=== PATIENT | male | born 1975 | race Caucasian/White ===

== ENCOUNTER 2019-07-25 08:01 | Emergency (ER) | payer BC, OTHER ==
[2019-07-25] MEDS ORDERED: Sodium Chloride 0.9% 10 ML Syringe FLUSH PRN (08:21)
[2019-07-25] MEDS ORDERED: Sodium Chloride 0.9% 1,000 ML IV STA (08:21)
[2019-07-25] MEDS ORDERED: Ondansetron 4 MG/2 ML SDV IVPUSH ONE (08:21)
[2019-07-25] MEDS ORDERED: HYDROmorphone 1 MG/ML Syringe IVPUSH ONE ×3 (08:23→13:15)
--- NOTE | 2019-07-25 08:38 | EDM.PDOC ---
ED HPI GENERAL MEDICAL PROBLEM - General Chief Complaint: Abdominal Pain Stated Complaint: VOMITING AND LOWER ABD PAIN Time Seen by Provider: 07/25/19 08:19 Source of Information: Reports: Patient History Limitations: Reports: No Limitations - History of Present Illness INITIAL COMMENTS - FREE TEXT/NARRATIVE: The patient presents with left sided abdominal pain, nausea and vomiting. This started at 2am this morning. He has no fever, chills, cough, chest pain, or shortness of breath. He has no dysuria, hematuria or diarrhea. He has no flank pain. He still has his gallbladder and appendix. Onset: Sudden Duration: Hour(s): (2am it woke him up) Location: Reports: Abdomen Quality: Reports: Sharp Severity: Severe Improves with: Reports: None Worsens with: Reports: None Associated Symptoms: Reports: Nausea/Vomiting. Denies: Chest Pain, Cough, Fever /Chills, Headaches, Shortness of Breath Left Middle Abdomen Pain Score (Numeric/FACES): 10 - Related Data Allergies Allergy/AdvReac Type Severity Reaction Status Date / Time No Known Allergies Allergy Verified 07/25/19 08:11 Home Meds: Home Meds Hydrocodone/Acetaminophen [Hydrocodon-Acetaminophen 5-325] 1 - 2 each PO Q6HR PRN #20 tablet 07/25/19 [Rx] Ondansetron [Zofran ODT] 4 mg PO Q6H PRN #20 tab.dis 07/25/19 [Rx] Tamsulosin HCl [Flomax] 0.4 mg PO DAILY #7 cap.er.24h 07/25/19 [Rx] Past Medical History - Past Health History Medical/Surgical History: Denies Medical/Surgical History Social & Family History - Family History Family Medical History: Noncontributory - Tobacco Use Smoking Status *Q: Never Smoker Second Hand Smoke Exposure: No - Caffeine Use Caffeine Use: Reports: Coffee - Alcohol Use Days Per Week of Alcohol Use: 3 Number of Drinks Per Day: 1 Total Drinks Per Week: 3 - Recreational Drug Use Recreational Drug Use: No ED ROS GENERAL - Review of Systems Review Of Systems: See Below Constitutional: Reports: No Symptoms HEENT: Reports: No Symptoms Respiratory: Reports: No Symptoms Cardiovascular: Reports: No Symptoms Endocrine: Reports: No Symptoms GI/Abdominal: Reports: Abdominal Pain, Nausea, Vomiting. Denies: Diarrhea : Reports: No Symptoms Musculoskeletal: Reports: No Symptoms ED EXAM, GI/ABD - Physical Exam Exam: See Below Exam Limited By: No Limitations General Appearance: Alert, Mild Distress (He is standing and leaning over the bed) Ears: Normal External Exam Nose: Normal Inspection Head: Atraumatic, Normocephalic Neck: Normal Inspection Respiratory/Chest: No Respiratory Distress, Lungs Clear, Normal Breath Sounds Cardiovascular: Regular Rate, Rhythm, No Edema, No Murmur GI/Abdominal Exam: Soft, No Organomegaly, No Mass, Tender (Moderate tenderness to both the RLQ and LLQ) Back Exam: Normal Inspection Extremities: Normal Inspection Course - Vital Signs Last Recorded V/S: Last Vital Signs Temp 96.5 F L 07/25/19 08:08 Pulse 65 07/25/19 08:08 Resp 16 07/25/19 08:08 BP 135/80 07/25/19 08:08 Pulse Ox 100 07/25/19 08:08 - Orders/Labs/Meds Orders: Active Orders 24 hr Category Date Time Status Peripheral IV Care [RC] . DIRECTED Care 07/25/19 08:21 Active Sodium Chloride 0.9% [Saline Flush] Med 07/25/19 08:21 Active 10 ml FLUSH ASDIRECTED PRN ED Antiemetic Medication Reflex [OM.PC] Stat Oth 07/25/19 08:21 Ordered Peripheral IV Insertion Adult [OM.PC] Stat Oth 07/25/19 08:21 Ordered Medication Orders Sodium Chloride (Saline Flush) 10 ml FLUSH ASDIRECTED PRN PRN Reason: Keep Vein Open Last Admin: 07/25/19 08:31 Dose: 10 ml Labs: Laboratory Tests 07/25/19 07/25/19 07/25/19 Range/Units 08:15 08:15 10:40 WBC 7.63 (4.23-9.07) K/mm3 RBC 4.94 (4.63-6.08) M/mm3 Hgb 15.3 (13.7-17.5) gm/dl Hct 44.5 (40.1-51.0) % MCV 90.1 (79.0-92.2) fl MCH 31.0 (25.7-32.2) pg MCHC 34.4 (32.2-35.5) g/dl RDW Std Deviation 40.2 (35.1-43.9) fL Plt Count 302 (163-337) K/mm3 MPV 10.7 (9.4-12.3) fl Neut % (Auto) 52.0 (34.0-67.9) % Lymph % (Auto) 37.2 (21.8-53.1) % [place] % (Auto) 9.2 (5.3-12.2) % Eos % (Auto) 0.9 (0.8-7.0) Baso % (Auto) 0.4 (0.1-1.2) % Neut # (Auto) 3.97 (1.78-5.38) K/mm3 Lymph # (Auto) 2.84 (1.32-3.57) K/mm3 [place] # (Auto) 0.70 (0.30-0.82) K/mm3 Eos # (Auto) 0.07 (0.04-0.54) K/mm3 Baso # (Auto) 0.03 (0.01-0.08) K/mm3 Sodium 144 (136-145) mEq/L Potassium 4.1 (3.5-5.1) mEq/L Chloride 109 H (98-107) mEq/L Carbon Dioxide 23 (21-32) mEq/L Anion Gap 16.1 H (5-15) BUN 17 (7-18) mg/dL Creatinine 1.3 (0.7-1.3) mg/dL Est Cr Clr Drug Dosing 77.23 mL/min Estimated GFR (MDRD) 60 (>60) mL/min BUN/Creatinine Ratio 13.1 L (14-18) Glucose 138 H (74-106) mg/dL Calcium 8.4 L (8.5-10.1) mg/dL Total Bilirubin 0.6 (0.2-1.0) mg/dL AST 17 (15-37) U/L ALT 34 (16-63) U/L Alkaline Phosphatase 38 L (46-116) U/L Total Protein 7.2 (6.4-8.2) g/dl Albumin 3.7 (3.4-5.0) g/dl Globulin 3.5 gm/dL Albumin/Globulin Ratio 1.1 (1-2) Lipase 104 (73-393) U/L Urine Color Yellow (Yellow) Urine Appearance Slt cloudy H (Clear) Urine pH 6.0 (5.0-8.0) Ur Specific [place] > or = 1.030 (1.005-1.030) Urine Protein 2+ H (Negative) Urine Glucose (UA) Negative (Negative) Urine Ketones Negative (Negative) Urine Occult Blood 3+ H (Negative) Urine Nitrite Negative (Negative) Urine Bilirubin Negative (Negative) Urine Urobilinogen 0.2 (0.2-1.0) Ur Leukocyte Esterase Trace H (Negative) Urine RBC 40-50 H (0-5) /hpf Urine WBC 5-10 H (0-5) /hpf Ur Squamous Epith Cells 0-5 (0-5) /hpf Urine Bacteria Rare (FEW) /hpf Urine Mucus Few (FEW) /hpf Meds: Medications Generic Name Dose Route Start Last Admin Trade Name Freq PRN Reason Stop Dose Admin Sodium Chloride 10 ml 07/25/19 08:21 07/25/19 08:31 Saline Flush FLUSH 10 ml ASDIRECTED PRN Administration Keep Vein Open Discontinued Medications Generic Name Dose Route Start Last Admin Trade Name Freq PRN Reason Stop Dose Admin Diatrizoate Meglum/Diatrizoate Sod 90 ml 07/25/19 10:38 07/25/19 10:58 Gastrografin 37% PO 07/25/19 10:39 90 ml ONETIME ONE Administration Hydromorphone HCl 1 mg 07/25/19 08:23 07/25/19 08:30 Dilaudid IVPUSH 07/25/19 08:24 1 mg ONETIME ONE Administration Hydromorphone HCl 1 mg 07/25/19 10:03 07/25/19 10:08 Dilaudid IVPUSH 07/25/19 10:04 1 mg ONETIME ONE Administration Hydromorphone HCl 0.5 mg 07/25/19 11:54 07/25/19 12:16 Dilaudid IVPUSH 07/25/19 11:55 0.5 mg ONETIME ONE Administration Hydromorphone HCl 1 mg 07/25/19 13:15 Dilaudid IVPUSH 07/25/19 13:16 ONETIME ONE Sodium Chloride 1,000 mls @ 1,000 mls/hr 07/25/19 08:21 07/25/19 08:30 Normal Saline IV 07/25/19 09:20 1,000 mls/hr .BOLUS STA Administration Iopamidol 100 ml 07/25/19 10:38 07/25/19 10:58 Isovue-300 (61%) IVPUSH 07/25/19 10:39 100 ml ONETIME ONE Administration Iopamidol 25 ml 07/25/19 10:38 07/25/19 10:58 Isovue-300 (61%) IVPUSH 07/25/19 10:39 25 ml ONETIME ONE Administration Ketorolac Tromethamine 30 mg 07/25/19 11:17 07/25/19 12:18 Toradol IVPUSH 07/25/19 11:18 30 mg ONETIME ONE Administration Metoclopramide HCl 10 mg 07/25/19 12:22 07/25/19 12:29 Reglan IVPUSH 07/25/19 12:23 10 mg ONETIME ONE Administration Ondansetron HCl 4 mg 07/25/19 08:21 07/25/19 08:30 Zofran IVPUSH 07/25/19 08:22 4 mg ONETIME ONE Administration Sodium Chloride 10 ml 07/25/19 10:38 07/25/19 10:58 Saline Flush FLUSH 07/25/19 10:39 10 ml ONETIME ONE Administration Tamsulosin HCl 0.4 mg 07/25/19 12:00 Flomax PO 07/25/19 12:01 ONETIME ONE - Re-Assessments/Exams Free Text/Narrative Re-Assessment/Exam: 07/25/19 08:39 I ordered an IV NS 1L bolus, zofran 4mg IV, dilaudid 1mg IV, labs, UA and CT of his abdomen and pelvis with IV contrast. 07/25/19 12:07 His CBC looks good. His anion gap is elevated at 16.1. His glucose is elevated at 136. His lipase is normal. His UA shows a trace of leukocyte esterase, 5-10 WBCs and 40-[address] shows 6mm obstructing stone within the proximal left ureter located slightly past the UPJ causing proximal hydronephrosis. Both kidneys show small nonobstructing calculi. Other findings believed to be incidental. He had more pain twice so I ordered dilaudid 1mg IV and that did help and now I am ordering dilaudid 0.5mg IV and toradol 30mg IV. I called [facility] in [place] and talked with the urologist train station server Dr Smith and he wanted me to get his pain under control and they will see him next week. If he has any problems sooner he may need to stent him if he cannot pass the stone. 07/25/19 13:12 His pain is much better now. I will discharge him home. Departure - Departure Time of Disposition: 15:00 Disposition: Home, Self-Care 01 Condition: Good Clinical Impression: Kidney stone on left side, Ureteral colic, Ureteral calculus, left - Discharge Information *PRESCRIPTION DRUG MONITORING PROGRAM REVIEWED*: No *COPY OF PRESCRIPTION DRUG MONITORING REPORT IN PATIENT MIRIAM: No Prescriptions: Hydrocodone/Acetaminophen [Hydrocodon-Acetaminophen 5-325] 1 - 2 each PO Q6HR PRN #20 tablet PRN Reason: Pain Tamsulosin HCl [Flomax] 0.4 mg PO DAILY #7 cap.er.24h Referrals: Sanket Marks Jr, MD [Primary Care Provider] - Steven Smith MD [Ordering Only Provider] - 1 Week Forms: ED Department Discharge Additional Instructions: Drink plenty of fluids. Take the flomax daily. Take motrin or aleve for pain. If that does not help, try the hydrocodone. Take the zofran every 6 hours as needed for nausea and vomiting. If the pain is worse, or if you cannot tolerate it or keep down your meds please return or go to [facility] in [place]. You may need an intervention to help pass the stone. Sepsis Event Note - Evaluation Sepsis Screening Result: No Definite Risk - Focused Exam Vital Signs: Vital Signs Temp Pulse Resp BP Pulse Ox 07/25/19 08:08 96.5 F L 65 16 135/80 100 Date Exam was Performed: 07/25/19 Time Exam was Performed: 13:21 - My Orders Last 24 Hours: My Active Orders 07/25/19 08:21 Peripheral IV Care [RC] . DIRECTED Sodium Chloride 0.9% [Saline Flush] 10 ml FLUSH ASDIRECTED PRN ED Antiemetic Medication Reflex [OM.PC] Stat Peripheral IV Insertion Adult [OM.PC] Stat - Assessment/Plan Last 24 Hours: My Active Orders 07/25/19 08:21 Peripheral IV Care [RC] . DIRECTED Sodium Chloride 0.9% [Saline Flush] 10 ml FLUSH ASDIRECTED PRN ED Antiemetic Medication Reflex [OM.PC] Stat Peripheral IV Insertion Adult [OM.PC] Stat
[2019-07-25] MEDS ORDERED: Iopamidol 612 MG/ML 100 ML Bottle IVPUSH ONE (10:38)
[2019-07-25] MEDS ORDERED: Diatrizoate Meglumine/Diatrizoate Sodium 37% 120 ML Bottle PO ONE (10:38)
[2019-07-25] MEDS ORDERED: Iopamidol 612 MG/ML 50 ML SDV IVPUSH ONE (10:38)
[2019-07-25] MEDS ORDERED: Sodium Chloride 0.9% 10 ML Syringe FLUSH ONE (10:38)
[2019-07-25] MEDS ORDERED: Ketorolac 30 MG/ML SDV IVPUSH ONE (11:17)
--- NOTE | 2019-07-25 11:40 | CT ---
CT abdomen and pelvis Technique: Multiple axial sections were obtained from above the dome of the diaphragm inferiorly through the pubic symphysis. Intravenous and oral contrast was utilized. Delayed images were also obtained from above the kidneys inferiorly to the inferiorly through the bladder. Findings: Dilated left renal pelvis and collecting system is seen. These findings are caused by a 6 mm obstructing stone located slightly past the UPJ. Delayed images shows contrast within the right ureter into the bladder. No contrast is seen to extend into the left ureter. Other findings: Visualized lung bases show nothing acute. Liver contains no focal parenchymal abnormality. Small amount of contrast reflux is noted into the distal esophagus. Adrenal glands show no nodule. No focal parenchymal abnormality is seen within the kidneys. Right kidney shows a small nonobstructing stone within the midpole measuring less than 5 mm. Left kidney shows 3 additional nonobstructing calculi measuring 4 mm or less in size. Spleen size is normal. Pancreas is within normal limits. Gallbladder contains no calcified gallstones. Aorta shows no aneurysm. No retroperitoneal adenopathy or mesenteric abnormalities are seen. No pelvic mass or adenopathy is seen. No free fluid or inflammatory change is seen within the abdomen or pelvis. No bowel dilatation is seen. Appendix is seen which is normal in size. Bone window settings were reviewed which shows spondylolytic defects at L5-S1. Mild scattered degenerative change is seen within the spine. No acute osseous finding is seen. Impression: 1. Obstructing stone within the proximal left ureter located slightly past the UPJ causing proximal hydronephrosis. 2. Both kidneys show small nonobstructing calculi. 3. Other findings believed to be incidental as noted above. No other acute finding is seen. Diagnostic code #3 This report was dictated in [place] Standard Time
[2019-07-25] MEDS ORDERED: HYDROmorphone 0.5 MG/0.5 ML Syringe IVPUSH ONE (11:54)
[2019-07-25] MEDS ORDERED: Tamsulosin 0.4 MG Cap.ER PO ONE (12:00)
[2019-07-25] MEDS ORDERED: Metoclopramide 10 MG/2 ML SDV IVPUSH ONE (12:22)
== END 2019-07-25 14:10 | disposition home or self-care (01) ==
LOC: JD.ED 08:01
DX: N13.2 Hydronephrosis with renal and ureteral calculous obstruction (principal)
CPT/HCPCS: 36415; 74177; 80053; 81001; 83690; 85025; 96361; 96374; 96375; 96376; 99284; A9270; J1170; J1885; J2405; J2765; J7030; Q9963; Q9967

== ENCOUNTER 2021-02-03 11:42 | Inpatient (IN) | payer BC, OTHER ==
[2021-02-03] MEDS ORDERED: Sodium Chloride 0.9% 10 ML Syringe FLUSH PRN (11:57)
--- NOTE | 2021-02-03 12:18 | EDM.PDOC ---
<Timothy Grimes - Last Filed: 02/03/21 13:47> ED HPI GENERAL MEDICAL PROBLEM - General Chief Complaint: Respiratory Problem Stated Complaint: COLLAPSED LUNG SENT BY DR ALEXANDER Time Seen by Provider: 02/03/21 11:57 - Related Data Allergies Allergy/AdvReac Type Severity Reaction Status Date / Time No Known Allergies Allergy Verified 02/03/21 15:32 Home Meds: Home Meds . [No Known Home Meds] 02/03/21 [History] ED PROCEDURAL SEDATION - Pre Procedure Indications: other (Chest tube placement) Preparations: procedure explained, consent signed, oxygen, continuous pulse oximeter, suction, continuous engine monitor, constant attendance - Physical Exam Airway: normal anatomy Cardiovascular: normal heart sounds Respiratory: normal breath sounds Neurological: alert, responsive, NAD Mallampati Classification: 2 (Tonsillar pillars and uvula hidden by base of tongue) - Procedure Sedation Procedural Sedation Start Date: 02/03/21 Procedural Sedation Start Time: 13:07 Sedation: versed (parenteral) (200 mg in total) ASA Classification: 1 (Normal healthy patient) - Intra Procedure Condition during procedure: moderately sedated, maintained airway well, handled secretions adequately, other (Transient hypotension after receiving 100 mg of propofol) Complications: none, oxygen desaturation (Stabilized with Ambu bag mask at 15 L breathing on his own.) Reversal: none - Post Procedure Procedural Sedation End Date: 02/03/21 Procedural Sedation End Time: 13:27 Condition after procedure: alert, responds to verbal stimuli (Answers questions appropriately) - Discharge Condition Patient returned to pre-procedure baseline: Yes Alert prior to discharge: Yes Ambulatory with assistance: Yes Vital signs normal: Yes Time spent with sedated patient: 20 min Departure - Departure Disposition: Admitted As Inpatient 65 Clinical Impression: Pneumothorax on left, Chest tube in place - Discharge Information <Kylah Gonzalez - Last Filed: 02/03/21 20:02> ED HPI GENERAL MEDICAL PROBLEM - General Source of Information: Reports: Patient, RN Notes Reviewed History Limitations: Reports: No Limitations - History of Present Illness INITIAL COMMENTS - FREE TEXT/NARRATIVE: Patient is a 45-year-old male sent to the emergency department from [facility] for evaluation with regards to pneumothorax. Patient reports he had Covid approximately 1 month ago and has been continue to have a harsh cough. He has been becoming progressively more short of breath. He was evaluated by his primary care provider in the clinic today and found to have with the provider describes as an almost complete left-sided pneumothorax. His provider reported that oxygen saturations were 92% on room air in his office. His case was already discussed with the general surgeon at [place] who would like to be notified when he arrives. Patient denies any chronic medical conditions. On arrival to ER, patient was found to be tachycardic at 116, tachypneic at 32, oxygen saturation 92% on room air. 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 Neurological History: Reports: None Psychiatric History: Reports: None Endocrine/Metabolic History: Reports: None Other Immunologic History: COVID 19 12/2020 Oncologic (Cancer) History: Reports: None Dermatologic History: Reports: None - Past Surgical History Head Surgeries/Procedures: Reports: None Respiratory Surgical History: Reports: None GI Surgical History: Reports: None Social & Family History - Family History Family Medical History: No Pertinent Family History - Tobacco Use Used Tobacco, but Quit: No - Caffeine Use Caffeine Use: Reports: Coffee Caffeine Use Comment: one coffee per day - Recreational Drug Use Recreational Drug Use: No ED ROS GENERAL - Review of Systems Review Of Systems: See Below Constitutional: Reports: No Symptoms. Denies: Fever, Chills HEENT: Reports: No Symptoms Respiratory: Reports: Shortness of Breath, Pleuritic Chest Pain, Cough Cardiovascular: Reports: No Symptoms Endocrine: Reports: No Symptoms GI/Abdominal: Reports: No Symptoms : Reports: No Symptoms Musculoskeletal: Reports: No Symptoms Skin: Reports: No Symptoms Neurological: Reports: No Symptoms Psychiatric: Reports: No Symptoms Hematologic/Lymphatic: Reports: No Symptoms Immunologic: Reports: No Symptoms ED EXAM, GENERAL - Physical Exam Exam: See Below Exam Limited By: No Limitations General Appearance: Alert, WD/WN, No Apparent Distress Respiratory/Chest: No Respiratory Distress, No Accessory Muscle Use, Chest Non- Tender, Other (Absent lung sounds throughout the left posterior lung cagle. Breath sounds clear throughout the right.) Cardiovascular: Normal Peripheral Pulses, Regular Rate, Rhythm, No Edema, No Gallop, No JVD, No Murmur, No Rub GI/Abdominal: Normal Bowel Sounds, Soft, Non-Tender, No Organomegaly, No Distention, No Abnormal Bruit, No Mass Neurological: Alert, Oriented, CN II-XII Intact, Normal Cognition, Normal Gait, Normal Reflexes, No Motor/Sensory Deficits Psychiatric: Normal Affect, Normal Mood Skin Exam: Warm, Dry, Intact, Normal Color, No Rash Course - Vital Signs Last Recorded V/S: Last Vital Signs Temp 98.2 F 02/03/21 15:14 Pulse 85 02/03/21 15:14 Resp 24 H 02/03/21 15:14 BP 113/63 02/03/21 15:14 Pulse Ox 97 02/03/21 17:48 - Orders/Labs/Meds Orders: Active Orders 24 hr Category Date Time Status Sodium Chloride 0.9% [Normal Saline] 1,000 ml Med 02/03/21 13:30 Active IV ASDIRECTED Sodium Chloride 0.9% [Saline Flush] Med 02/03/21 11:57 Active 10 ml FLUSH ASDIRECTED PRN Peripheral IV Insertion Adult [OM.PC] Stat Oth 02/03/21 11:57 Ordered Medication Orders Acetaminophen (Acetaminophen 325 Mg Tab) 650 mg PO Q6H ON LICENSE OF [facility] Last Admin: 02/03/21 16:09 Dose: 650 mg Documented by: MARC Docusate Sodium (Docusate Sodium 100 Mg Cap) 100 mg PO BID ON LICENSE OF [facility] Enoxaparin Sodium (Enoxaparin 40 Mg/0.4 Ml Syringe) 40 mg SUBCUT DAILY ON LICENSE OF [facility] Hydromorphone HCl (Hydromorphone 0.5 Mg/0.5 Ml Syringe) 0.5 mg IVPUSH Q2H PRN PRN Reason: Pain (severe 7-10) Sodium Chloride (Normal Saline) 1,000 mls @ 125 mls/hr IV ASDIRECTED PHONG Last Admin: 02/03/21 14:08 Dose: 125 mls/hr Documented by: JEANNETTE Ondansetron HCl (Ondansetron 4 Mg Tab.Dis) 4 mg PO Q4H PRN PRN Reason: nausea, able to take PO Ondansetron HCl (Ondansetron 4 Mg/2 Ml Sdv) 4 mg IV Q4H PRN PRN Reason: Nausea/Vomiting Oxycodone HCl (Oxycodone 5 Mg Tab) 5 mg PO Q4H PRN PRN Reason: Pain (moderate 4-6) Last Admin: 02/03/21 18:13 Dose: 5 mg Documented by: MARC Sodium Chloride (Sodium Chloride 0.9% 10 Ml Syringe) 10 ml FLUSH ASDIRECTED PRN PRN Reason: Keep Vein Open Last Admin: 02/03/21 12:08 Dose: 10 ml Documented by: DESI Labs: Laboratory Tests 02/03/21 02/03/21 Range/Units 12:05 12:05 WBC 10.83 H (4.23-9.07) K/mm3 RBC 4.25 L (4.63-6.08) M/mm3 Hgb 13.1 L D (13.7-17.5) gm/dl Hct 39.2 L (40.1-51.0) % MCV 92.2 (79.0-92.2) fl MCH 30.8 (25.7-32.2) pg MCHC 33.4 (32.2-35.5) g/dl RDW Std Deviation 43.1 (35.1-43.9) fL Plt Count 343 H (163-337) K/mm3 MPV 9.7 (9.4-12.3) fl Neut % (Auto) 75.8 H (34.0-67.9) % Lymph % (Auto) 14.4 L (21.8-53.1) % [place] % (Auto) 8.6 (5.3-12.2) % Eos % (Auto) 1.1 (0.8-7.0) Baso % (Auto) 0.1 (0.1-1.2) % Neut # (Auto) 8.21 H (1.78-5.38) K/mm3 Lymph # (Auto) 1.56 (1.32-3.57) K/mm3 [place] # (Auto) 0.93 H (0.30-0.82) K/mm3 Eos # (Auto) 0.12 (0.04-0.54) K/mm3 Baso # (Auto) 0.01 (0.01-0.08) K/mm3 Sodium 141 (136-145) mEq/L Potassium 4.3 (3.5-5.1) mEq/L Chloride 106 (98-107) mEq/L Carbon Dioxide 26 (21-32) mEq/L Anion Gap 13.3 (5-15) BUN 14 (7-18) mg/dL Creatinine 1.2 (0.7-1.3) mg/dL Est Cr Clr Drug Dosing TNP Estimated GFR (MDRD) > 60 (>60) mL/min BUN/Creatinine Ratio 11.7 L (14-18) Glucose 115 H (70-99) mg/dL Calcium 8.9 (8.5-10.1) mg/dL Total Bilirubin 1.2 H (0.2-1.0) mg/dL AST 14 L (15-37) U/L ALT 30 (16-63) U/L Alkaline Phosphatase 55 (46-116) U/L Total Protein 7.7 (6.4-8.2) g/dl Albumin 3.5 (3.4-5.0) g/dl Globulin 4.2 gm/dL Albumin/Globulin Ratio 0.8 L (1-2) Meds: Medications Generic Name Dose Route Start Last Admin Trade Name Freq PRN Reason Stop Dose Admin Acetaminophen 650 mg 02/03/21 15:00 02/03/21 16:09 Acetaminophen 325 Mg Tab PO 650 mg Q6H PHONG Administration Docusate Sodium 100 mg 02/03/21 21:00 Docusate Sodium 100 Mg Cap PO BID PHONG Enoxaparin Sodium 40 mg 02/04/21 09:00 Enoxaparin 40 Mg/0.4 Ml Syringe SUBCUT DAILY PHONG Hydromorphone HCl 0.5 mg 02/03/21 13:58 Hydromorphone 0.5 Mg/0.5 Ml Syringe IVPUSH Q2H PRN Pain (severe 7-10) Sodium Chloride 1,000 mls @ 125 mls/hr 02/03/21 13:30 02/03/21 14:08 Normal Saline IV 125 mls/hr ASDIRECTED PHONG Administration Ondansetron HCl 4 mg 02/03/21 13:58 Ondansetron 4 Mg Tab.Dis PO Q4H PRN nausea, able to take PO Ondansetron HCl 4 mg 02/03/21 14:07 Ondansetron 4 Mg/2 Ml Sdv IV Q4H PRN Nausea/Vomiting Oxycodone HCl 5 mg 02/03/21 13:58 02/03/21 18:13 Oxycodone 5 Mg Tab PO 5 mg Q4H PRN Administration Pain (moderate 4-6) Sodium Chloride 10 ml 02/03/21 11:57 02/03/21 12:08 Sodium Chloride 0.9% 10 Ml Syringe FLUSH 10 ml ASDIRECTED PRN Administration Keep Vein Open Discontinued Medications Generic Name Dose Route Start Last Admin Trade Name Kayy PRN Reason Stop Dose Admin Fentanyl 50 mcg 02/03/21 12:58 02/03/21 13:10 Fentanyl 100 Mcg/2 Ml Sdv IVPUSH 02/03/21 12:59 50 mcg ONETIME ONE Administration Lidocaine/Epinephrine Confirm 02/03/21 13:01 02/03/21 13:27 Lidocaine 1% With Epinephrine 1:100,000 10 Ml Mdv Administered 02/03/21 13:02 Not Given Dose 10 ml .ROUTE .STK-MED ONE Lidocaine/Epinephrine Confirm 02/03/21 13:01 02/03/21 13:27 Lidocaine 1% With Epinephrine 1:100,000 10 Ml Mdv Administered 02/03/21 13:02 Not Given Dose 10 ml .ROUTE .STK-MED ONE Lidocaine/Epinephrine Confirm 02/03/21 13:11 02/03/21 13:28 Lidocaine 1% With Epinephrine 1:100,000 10 Ml Mdv Administered 02/03/21 13:12 Not Given Dose 10 ml .ROUTE .STK-MED ONE Lidocaine/Epinephrine 20 ml 02/03/21 13:27 02/03/21 13:20 Lidocaine 1% With Epinephrine 1:100,000 20 Ml Mdv INJECT 02/03/21 13:28 20 ml ONETIME ONE Administration Propofol 200 mg 02/03/21 12:58 02/03/21 13:10 Propofol 200 Mg/20 Ml Sdv IVPUSH 02/03/21 12:59 200 mg ONETIME ONE Administration Propofol Confirm 02/03/21 13:23 02/03/21 13:28 Propofol 200 Mg/20 Ml Sdv Administered 02/03/21 13:24 Not Given Dose 200 mg .ROUTE .STK-MED ONE - Re-Assessments/Exams Free Text/Narrative Re-Assessment/Exam: Patient is a 45-year-old male sent to the emergency department from the [facility] with complaints of left-sided pneumothorax. On exam, lung sounds are absent throughout the left posterior lung cagle. I have ordered baseline labs and two-view chest x-ray. Oxygen saturation has been 90 to 92% on room air. I did place the patient on 2 L of oxygen by nasal cannula. 02/03/21 12:26 Chest x-ray shows essentially complete pneumothorax on the left side. Called and spoke with general surgeon, Dr. Dumont. He will be in to insert chest tube. 02/03/[address] Dumont is present for chest tube insertion. Patient remained stable. 02/03/21 14:10 Patient is doing well after chest tube insertion. Pain is well controlled. He will be admitted under the service of Dr. Dumont. Departure - Departure Time of Disposition: 14:11 Condition: Good Sepsis Event Note (ED) - Focused Exam Vital Signs: Vital Signs Temp Pulse Resp BP Pulse Ox 02/03/21 12:11 97.3 F 116 H 32 H 103/87 92 L - My Orders Last 24 Hours: My Active Orders 02/03/21 11:57 Sodium Chloride 0.9% [Saline Flush] 10 ml FLUSH ASDIRECTED PRN Peripheral IV Insertion Adult [OM.PC] Stat 02/03/21 13:30 Sodium Chloride 0.9% [Normal Saline] 1,000 ml IV ASDIRECTED - Assessment/Plan Last 24 Hours: My Active Orders 02/03/21 11:57 Sodium Chloride 0.9% [Saline Flush] 10 ml FLUSH ASDIRECTED PRN Peripheral IV Insertion Adult [OM.PC] Stat 02/03/21 13:30 Sodium Chloride 0.9% [Normal Saline] 1,000 ml IV ASDIRECTED
--- NOTE | 2021-02-03 12:40 | CR ---
Chest: 2 views of the chest were obtained. Comparison: No prior chest imaging is available. Large left-sided pneumothorax is seen causing atelectasis within the left lung. Right lung shows no definite acute parenchymal change. Heart size and mediastinum are normal. Impression: 1. Large left-sided pneumothorax which will require a chest tube. Diagnostic code #5
[2021-02-03] MEDS ORDERED: fentaNYL 100 MCG/2 ML SDV IVPUSH ONE (12:58)
[2021-02-03] MEDS ORDERED: Propofol 200 MG/20 ML SDV IVPUSH ONE (12:58)
[2021-02-03] MEDS ORDERED: Lidocaine 1% with EPINEPHrine 1:100,000 10 ML MDV ONE ×3 (13:01→13:11)
[2021-02-03] MEDS ORDERED: Propofol 200 MG/20 ML SDV ONE (13:23)
[2021-02-03] MEDS ORDERED: Lidocaine 1% with EPINEPHrine 1:100,000 20 ML MDV INJECT ONE (13:27)
[2021-02-03] MEDS ORDERED: HYDROmorphone 0.5 MG/0.5 ML Syringe IVPUSH PRN (13:58)
[2021-02-03] MEDS ORDERED: Ondansetron 4 MG Tab.DIS PO PRN (13:58)
[2021-02-03] MEDS ORDERED: Ondansetron 4 MG/2 ML SDV IV PRN (14:07)
[2021-02-03] MEDS: Sodium Chloride 0.9% 1,000 ML IV SCH ×2 (14:08→23:14)
--- NOTE | 2021-02-03 14:23 | PCM.HP.2 ---
H&P History of Present Illness - General Date of Service: 02/03/21 Admit Problem/Dx: Admission Diagnosis/Problem Admission Diagnosis/Problem Pneumothorax on left Source of Information: Patient - History of Present Illness Initial Comments - Free Text/Narative: Patient had Covid-19 on 01/04. He has completed quarantine and has returned back to work doing well on room air except for a cough. He had completed all Covid-19 related treatments. Yesterday he felt a pop on his right chest after a bout of cough and started having left chest pain. He thought he displaced a rib so he made an appointment to see a chiropractor. His made an appointment to see Dr. Roque who noted lack of left sided breath sounds and obtained a chest Xray showing a large left pneumothorax. I was consulted by Dr. Roque and recommended a chest tube at the [facility]. The patient was sent to the ER for this. I was called to placed the chest tube. Onset of Symptoms: Reports: Sudden Duration of Symptoms: Reports: Day(s): (2) Location: Reports: Chest Quality: Reports: Stabbing Severity: Moderate Improves with: Reports: Rest Worsens with: Reports: Other (cough) Associated Symptoms: Reports: Chest Pain - Related Data Allergies/Adverse Reactions: Allergies Allergy/AdvReac Type Severity Reaction Status Date / Time No Known Allergies Allergy Verified 02/03/21 11:52 Past Medical History - Past Health History Medical/Surgical History: Denies Medical/Surgical History HEENT History: Reports: None Cardiovascular History: Reports: None Respiratory History: Reports: None Gastrointestinal History: Reports: None Genitourinary History: Reports: Renal Calculus Musculoskeletal History: Reports: Amputation Other 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 Neurological History: Reports: None Psychiatric History: Reports: None Endocrine/Metabolic History: Reports: None Other Immunologic History: COVID 19 12/2020 Oncologic (Cancer) History: Reports: None Dermatologic History: Reports: None - Past Surgical History Head Surgeries/Procedures: Reports: None Respiratory Surgical History: Reports: None GI Surgical History: Reports: None Social & Family History - Family History Family Medical History: No Pertinent Family History - Tobacco Use Used Tobacco, but Quit: No - Caffeine Use Caffeine Use: Reports: Coffee Caffeine Use Comment: one coffee per day - Recreational Drug Use Recreational Drug Use: No H&P Review of Systems - Review of Systems: Review Of Systems: See Below General: Reports: No Symptoms HEENT: Reports: No Symptoms Pulmonary: Reports: Pleuritic Chest Pain, Cough Cardiovascular: Reports: No Symptoms Gastrointestinal: Reports: No Symptoms Genitourinary: Reports: No Symptoms Musculoskeletal: Reports: No Symptoms Skin: Reports: No Symptoms Psychiatric: Reports: No Symptoms Neurological: Reports: No Symptoms Exam - Exam Exam: See Below - Vital Signs Vital Signs: Last Vital Signs Temp 97.3 F 02/03/21 12:11 Pulse 116 H 02/03/21 12:11 Resp 32 H 02/03/21 12:11 BP 103/87 02/03/21 12:11 Pulse Ox 92 L 02/03/21 12:11 - Exam General: Alert, Oriented, Cooperative Lungs: Decreased Breath Sounds (left) Cardiovascular: Regular Rate, Regular Rhythm, Normal S1, Normal S2 - Patient Data Lab Results Last 24 hrs: Laboratory Results - last 24 hr 02/03/21 02/03/21 Range/Units 12:05 12:05 WBC 10.83 H (4.23-9.07) K/mm3 RBC 4.25 L (4.63-6.08) M/mm3 Hgb 13.1 L D (13.7-17.5) gm/dl Hct 39.2 L (40.1-51.0) % MCV 92.2 (79.0-92.2) fl MCH 30.8 (25.7-32.2) pg MCHC 33.4 (32.2-35.5) g/dl RDW Std Deviation 43.1 (35.1-43.9) fL Plt Count 343 H (163-337) K/mm3 MPV 9.7 (9.4-12.3) fl Neut % (Auto) 75.8 H (34.0-67.9) % Lymph % (Auto) 14.4 L (21.8-53.1) % [place] % (Auto) 8.6 (5.3-12.2) % Eos % (Auto) 1.1 (0.8-7.0) Baso % (Auto) 0.1 (0.1-1.2) % Neut # (Auto) 8.21 H (1.78-5.38) K/mm3 Lymph # (Auto) 1.56 (1.32-3.57) K/mm3 [place] # (Auto) 0.93 H (0.30-0.82) K/mm3 Eos # (Auto) 0.12 (0.04-0.54) K/mm3 Baso # (Auto) 0.01 (0.01-0.08) K/mm3 Sodium 141 (136-145) mEq/L Potassium 4.3 (3.5-5.1) mEq/L Chloride 106 (98-107) mEq/L Carbon Dioxide 26 (21-32) mEq/L Anion Gap 13.3 (5-15) BUN 14 (7-18) mg/dL Creatinine 1.2 (0.7-1.3) mg/dL Est Cr Clr Drug Dosing TNP Estimated GFR (MDRD) > 60 (>60) mL/min BUN/Creatinine Ratio 11.7 L (14-18) Glucose 115 H (70-99) mg/dL Calcium 8.9 (8.5-10.1) mg/dL Total Bilirubin 1.2 H (0.2-1.0) mg/dL AST 14 L (15-37) U/L ALT 30 (16-63) U/L Alkaline Phosphatase 55 (46-116) U/L Total Protein 7.7 (6.4-8.2) g/dl Albumin 3.5 (3.4-5.0) g/dl Globulin 4.2 gm/dL Albumin/Globulin Ratio 0.8 L (1-2) Result Diagrams: 02/03/21 12:05 02/03/21 12:05 Sepsis Event Note - Focused Exam Vital Signs: Vital Signs Temp Pulse Resp BP Pulse Ox 02/03/21 12:11 97.3 F 116 H 32 H 103/87 92 L Problem List Initiated/Reviewed/Updated: No Orders Last 24hrs: Active Orders 24 hr Category Date Time Status Patient Status [ADT] Routine ADT 02/03/21 13:58 Ordered Antiembolic Devices [RC] PER UNIT ROUTINE Care 02/03/21 14:01 Ordered Cardiac Monitoring [RC] CONTINUOUS Care 02/03/21 14:00 Ordered Intake and Output [RC] QSHIFT Care 02/03/21 13:59 Ordered Oxygen Therapy [RC] PRN Care 02/03/21 13:58 Ordered Peripheral IV Care [RC] . DIRECTED Care 02/03/21 11:58 Active Pulse Oximetry [RC] CONTINUOUS Care 02/03/21 14:00 Ordered Up ad Norma [RC] ASDIRECTED Care 02/03/21 13:58 Ordered VTE/DVT Education [RC] PER UNIT ROUTINE Care 02/03/21 13:58 Ordered Vital Signs [RC] Q4H Care 02/03/21 13:58 Ordered Regular Diet [DIET] Diet 02/03/21 Dinner Ordered Chest 1V Frontal [CR] AM Exams 02/04/21 05:11 Ordered Chest 1V Frontal [CR] AM Exams 02/05/21 05:11 Ordered Chest 1V Frontal [CR] AM Exams 02/06/21 05:11 Ordered Chest 1V Frontal [CR] AM Exams 02/07/21 05:11 Ordered Chest 1V Frontal [CR] AM Exams 02/08/21 05:11 Ordered Chest 1V Frontal [CR] Stat Exams 02/03/21 13:46 Ordered Acetaminophen [TylenoL] Med 02/03/21 14:00 Ordered 650 mg PO Q6H Docusate Sodium [Colace] Med 02/03/21 21:00 Ordered 100 mg PO BID Enoxaparin [Lovenox] Med 02/04/21 09:00 Ordered 40 mg SUBCUT DAILY HYDROmorphone [Dilaudid] Med 02/03/21 13:58 Ordered 0.5 mg IVPUSH Q2H PRN Ondansetron [Zofran ODT] Med 02/03/21 13:58 Ordered 4 mg PO Q4H PRN Ondansetron [Zofran] Med 02/03/21 14:07 Ordered 4 mg IV Q4H PRN Sodium Chloride 0.9% [Normal Saline] 1,000 ml Med 02/03/21 13:30 Active IV ASDIRECTED Sodium Chloride 0.9% [Saline Flush] Med 02/03/21 11:57 Active 10 ml FLUSH ASDIRECTED PRN oxyCODONE Med 02/03/21 13:58 Ordered 5 mg PO Q4H PRN Peripheral IV Insertion Adult [OM.PC] Stat Oth 02/03/21 11:57 Ordered Sequential Compression Device [OM.PC] Per Unit Routine Oth 02/03/21 14:00 Ordered Resuscitation Status Routine Resus Stat 02/03/21 13:58 Ordered Medication Orders Acetaminophen (Acetaminophen 325 Mg Tab) 650 mg PO Q6H PHONG Docusate Sodium (Docusate Sodium 100 Mg Cap) 100 mg PO BID PHONG Enoxaparin Sodium (Enoxaparin 40 Mg/0.4 Ml Syringe) 40 mg SUBCUT DAILY PHONG Hydromorphone HCl (Hydromorphone 0.5 Mg/0.5 Ml Syringe) 0.5 mg IVPUSH Q2H PRN PRN Reason: Pain (severe 7-10) Sodium Chloride (Normal Saline) 1,000 mls @ 125 mls/hr IV ASDIRECTED PHONG Last Admin: 02/03/21 14:08 Dose: 125 mls/hr Documented by: JEANNETTE Ondansetron HCl (Ondansetron 4 Mg Tab.Dis) 4 mg PO Q4H PRN PRN Reason: nausea, able to take PO Ondansetron HCl (Ondansetron 4 Mg/2 Ml Sdv) 4 mg IV Q4H PRN PRN Reason: Nausea/Vomiting Oxycodone HCl (Oxycodone 5 Mg Tab) 5 mg PO Q4H PRN PRN Reason: Pain (moderate 4-6) Sodium Chloride (Sodium Chloride 0.9% 10 Ml Syringe) 10 ml FLUSH ASDIRECTED PRN PRN Reason: Keep Vein Open Last Admin: 02/03/21 12:08 Dose: 10 ml Documented by: DESI Assessment/Plan Comment:: Patient has a spontaneous left sided pneumothorax in the context of recent Covid-19 infection. I saw the patient and recommended a left thoracostomy tube. Risks, benefits and alternatives were discussed and informed consent was obtained. Procedure was performed in the ER. No immediate complications. Follow up exray showed satisfactory re-expansion of the left chest. Patient will be admitted for monitoring - ok to have reg diet - pain meds - ok to ambulate, eg to the bathroom. just put the chest tube to waterseal briefly - chest tube to continuous low wall suction m 20 cm H2O for 24 hrs - repeat Chest Xray in the AM - dc IVF - labs PRN - Mortality Measure Prognosis:: Good (no organ failure)
--- NOTE | 2021-02-03 14:36 | CR ---
Chest: Frontal view of the chest was obtained. Comparison: Prior chest x-ray performed earlier on the same day (12:12 PM). Left-sided chest tube is noted. Decrease in size of pneumothorax is seen but continued pneumothorax remains within the left base. Right lung is fairly clear. Left lung is also fairly clear. Small amount of soft tissue air is seen within the left lower chest wall. Heart size and mediastinum are within normal limits. Impression: 1. Left-sided chest tube is in place. 2. Pneumothorax is decreased but continued pneumothorax is seen within the left base. Continued chest x-ray is recommended. 3. Improving density within the left chest from prior study. Clear right chest is noted. Diagnostic code #3
[2021-02-03] MEDS: Acetaminophen 325 MG Tab PO SCH ×2 (16:09→20:29)
[2021-02-03] MEDS: oxyCODONE 5 MG Tab PO PRN (18:13)
--- NOTE | 2021-02-03 18:49 | PROC ---
DATE OF OPERATION: 02/03/2021 SURGEON: Justine Dumont MD PREOPERATIVE DIAGNOSIS: Left-sided pneumothorax. POSTOPERATIVE DIAGNOSIS: Left-sided pneumothorax. OPERATION PERFORMED: Chest tube thoracostomy on the left chest. ANESTHESIA: Local anesthetic with 1% lidocaine with epinephrine as well as monitored anesthesia care administered by Dr. Grimes. COMPLICATIONS: None. INDICATION AND CONSENT: The patient is a 45-year-old male who recently recovered from COVID-19 that he was diagnosed with about a month ago. The patient was at home, but yesterday felt a pop on the left chest with worsening breathing. He came to see Dr. Roque today. Chest x-ray showed large left-sided pneumothorax. The patient was sent to the emergency department, where I was called to see the patient. I evaluated the patient, confirmed the findings and offered a left chest tube placement. We discussed risks, benefits, and alternatives, and informed consent was obtained. DETAILS OF PROCEDURE: The patient was placed in supine position with left arm up. The left lateral chest was prepped and draped. Monitored anesthesia care was administered by Dr. Grimes and 5th intercostal space was palpated. Local anesthetic was infiltrated. Incision was made right at about the anterior axillary line. Then using hemostatic clamps, the lung was entered with a large gush of air. Finger was used to ensure that there was no adhesion to the area of insertion and then a 20-English chest tube was placed and secured in place with sutures and tape. This was hooked to a pneumovac on 20 cm H2O of low wall suction continuously. Post placement x-ray revealed partial re-expansion of the lung. The patient was taken to the floor for continued monitoring. The patient will continue to be monitored on the floor until the pneumothorax resolves. All counts and instruments were correct at the end of the procedure and disposed off appropriately. MMODAL /[id number] PAN
[2021-02-03] MEDS: Docusate Sodium 100 MG Cap PO SCH (20:32)
[2021-02-04] MEDS: Acetaminophen 325 MG Tab PO SCH ×4 (04:15→20:38)
[2021-02-04] MEDS: Sodium Chloride 0.9% 1,000 ML IV SCH ×2 (07:30→15:30)
--- NOTE | 2021-02-04 07:57 | PCM.PN ---
- General Info Date of Service: 02/04/21 Admission Dx/Problem (Free Text): Admission Diagnosis/Problem Admission Diagnosis/Problem Pneumothorax on left Subjective Update: feels better, no fevers or chills. pain at the insertion site Functional Status: Reports: Pain Controlled, Tolerating Diet - Review of Systems General: Reports: No Symptoms HEENT: Reports: No Symptoms Pulmonary: Reports: No Symptoms Cardiovascular: Reports: No Symptoms Gastrointestinal: Reports: No Symptoms Genitourinary: Reports: No Symptoms Musculoskeletal: Reports: No Symptoms Skin: Reports: No Symptoms - Patient Data Vitals - Most Recent: Last Vital Signs Temp 98.4 F 02/04/21 07:34 Pulse 79 02/04/21 07:34 Resp 20 02/04/21 07:34 BP 116/81 02/04/21 07:34 Pulse Ox 93 L 02/04/21 07:34 Weight - Most Recent: 89.857 kg I&O - Last 24 Hours: Intake & Output 02/03/21 02/04/21 02/04/21 22:59 06:59 14:59 Intake Total 0 2674 Output Total 150 Balance 0 2524 Lab Results Last 24 Hours: Laboratory Results - last 24 hr 02/03/21 02/03/21 Range/Units 12:05 12:05 WBC 10.83 H (4.23-9.07) K/mm3 RBC 4.25 L (4.63-6.08) M/mm3 Hgb 13.1 L D (13.7-17.5) gm/dl Hct 39.2 L (40.1-51.0) % MCV 92.2 (79.0-92.2) fl MCH 30.8 (25.7-32.2) pg MCHC 33.4 (32.2-35.5) g/dl RDW Std Deviation 43.1 (35.1-43.9) fL Plt Count 343 H (163-337) K/mm3 MPV 9.7 (9.4-12.3) fl Neut % (Auto) 75.8 H (34.0-67.9) % Lymph % (Auto) 14.4 L (21.8-53.1) % Hamlin % (Auto) 8.6 (5.3-12.2) % Eos % (Auto) 1.1 (0.8-7.0) Baso % (Auto) 0.1 (0.1-1.2) % Neut # (Auto) 8.21 H (1.78-5.38) K/mm3 Lymph # (Auto) 1.56 (1.32-3.57) K/mm3 Hamlin # (Auto) 0.93 H (0.30-0.82) K/mm3 Eos # (Auto) 0.12 (0.04-0.54) K/mm3 Baso # (Auto) 0.01 (0.01-0.08) K/mm3 Sodium 141 (136-145) mEq/L Potassium 4.3 (3.5-5.1) mEq/L Chloride 106 (98-107) mEq/L Carbon Dioxide 26 (21-32) mEq/L Anion Gap 13.3 (5-15) BUN 14 (7-18) mg/dL Creatinine 1.2 (0.7-1.3) mg/dL Est Cr Clr Drug Dosing TNP Estimated GFR (MDRD) > 60 (>60) mL/min BUN/Creatinine Ratio 11.7 L (14-18) Glucose 115 H (70-99) mg/dL Calcium 8.9 (8.5-10.1) mg/dL Total Bilirubin 1.2 H (0.2-1.0) mg/dL AST 14 L (15-37) U/L ALT 30 (16-63) U/L Alkaline Phosphatase 55 (46-116) U/L Total Protein 7.7 (6.4-8.2) g/dl Albumin 3.5 (3.4-5.0) g/dl Globulin 4.2 gm/dL Albumin/Globulin Ratio 0.8 L (1-2) Med Orders - Current: Current Medications Acetaminophen (Acetaminophen 325 Mg Tab) 650 mg PO Q6H [facility] Last Admin: 02/04/21 04:15 Dose: 650 mg Documented by: Docusate Sodium (Docusate Sodium 100 Mg Cap) 100 mg PO BID [facility] Last Admin: 02/03/21 20:32 Dose: 100 mg Documented by: Enoxaparin Sodium (Enoxaparin 40 Mg/0.4 Ml Syringe) 40 mg SUBCUT DAILY [facility] Hydromorphone HCl (Hydromorphone 0.5 Mg/0.5 Ml Syringe) 0.5 mg IVPUSH Q2H PRN PRN Reason: Pain (severe 7-10) Sodium Chloride (Normal Saline) 1,000 mls @ 125 mls/hr IV ASDIRECTED PHONG Last Admin: 02/04/21 07:30 Dose: 125 mls/hr Documented by: Ondansetron HCl (Ondansetron 4 Mg Tab.Dis) 4 mg PO Q4H PRN PRN Reason: nausea, able to take PO Ondansetron HCl (Ondansetron 4 Mg/2 Ml Sdv) 4 mg IV Q4H PRN PRN Reason: Nausea/Vomiting Oxycodone HCl (Oxycodone 5 Mg Tab) 5 mg PO Q4H PRN PRN Reason: Pain (moderate 4-6) Last Admin: 02/03/21 18:13 Dose: 5 mg Documented by: Sodium Chloride (Sodium Chloride 0.9% 10 Ml Syringe) 10 ml FLUSH ASDIRECTED PRN PRN Reason: Keep Vein Open Last Admin: 02/03/21 12:08 Dose: 10 ml Documented by: Discontinued Medications Fentanyl (Fentanyl 100 Mcg/2 Ml Sdv) 50 mcg IVPUSH ONETIME ONE Stop: 02/03/21 12:59 Last Admin: 02/03/21 13:10 Dose: 50 mcg Documented by: Lidocaine/Epinephrine (Lidocaine 1% With Epinephrine 1:100,000 10 Ml Mdv) Confirm Administered Dose 10 ml .ROUTE .STK-MED ONE Stop: 02/03/21 13:02 Last Admin: 02/03/21 13:27 Dose: Not Given Documented by: Lidocaine/Epinephrine (Lidocaine 1% With Epinephrine 1:100,000 10 Ml Mdv) Confirm Administered Dose 10 ml .ROUTE .STK-MED ONE Stop: 02/03/21 13:02 Last Admin: 02/03/21 13:27 Dose: Not Given Documented by: Lidocaine/Epinephrine (Lidocaine 1% With Epinephrine 1:100,000 10 Ml Mdv) Confirm Administered Dose 10 ml .ROUTE .STK-MED ONE Stop: 02/03/21 13:12 Last Admin: 02/03/21 13:28 Dose: Not Given Documented by: Lidocaine/Epinephrine (Lidocaine 1% With Epinephrine 1:100,000 20 Ml Mdv) 20 ml INJECT ONETIME ONE Stop: 02/03/21 13:28 Last Admin: 02/03/21 13:20 Dose: 20 ml Documented by: Propofol (Propofol 200 Mg/20 Ml Sdv) 200 mg IVPUSH ONETIME ONE Stop: 02/03/21 12:59 Last Admin: 02/03/21 13:10 Dose: 200 mg Documented by: Propofol (Propofol 200 Mg/20 Ml Sdv) Confirm Administered Dose 200 mg .ROUTE .STK-MED ONE Stop: 02/03/21 13:24 Last Admin: 02/03/21 13:28 Dose: Not Given Documented by: - Exam Quality Assessment: Supplemental Oxygen General: Alert, Oriented, Cooperative Lungs: Clear to Auscultation Cardiovascular: Regular Rate, Regular Rhythm - Patient Data Lab Results Last 24 hrs: Laboratory Results - last 24 hr 02/03/21 02/03/21 Range/Units 12:05 12:05 WBC 10.83 H (4.23-9.07) K/mm3 RBC 4.25 L (4.63-6.08) M/mm3 Hgb 13.1 L D (13.7-17.5) gm/dl Hct 39.2 L (40.1-51.0) % MCV 92.2 (79.0-92.2) fl MCH 30.8 (25.7-32.2) pg MCHC 33.4 (32.2-35.5) g/dl RDW Std Deviation 43.1 (35.1-43.9) fL Plt Count 343 H (163-337) K/mm3 MPV 9.7 (9.4-12.3) fl Neut % (Auto) 75.8 H (34.0-67.9) % Lymph % (Auto) 14.4 L (21.8-53.1) % Hamlin % (Auto) 8.6 (5.3-12.2) % Eos % (Auto) 1.1 (0.8-7.0) Baso % (Auto) 0.1 (0.1-1.2) % Neut # (Auto) 8.21 H (1.78-5.38) K/mm3 Lymph # (Auto) 1.56 (1.32-3.57) K/mm3 Hamlin # (Auto) 0.93 H (0.30-0.82) K/mm3 Eos # (Auto) 0.12 (0.04-0.54) K/mm3 Baso # (Auto) 0.01 (0.01-0.08) K/mm3 Sodium 141 (136-145) mEq/L Potassium 4.3 (3.5-5.1) mEq/L Chloride 106 (98-107) mEq/L Carbon Dioxide 26 (21-32) mEq/L Anion Gap 13.3 (5-15) BUN 14 (7-18) mg/dL Creatinine 1.2 (0.7-1.3) mg/dL Est Cr Clr Drug Dosing TNP Estimated GFR (MDRD) > 60 (>60) mL/min BUN/Creatinine Ratio 11.7 L (14-18) Glucose 115 H (70-99) mg/dL Calcium 8.9 (8.5-10.1) mg/dL Total Bilirubin 1.2 H (0.2-1.0) mg/dL AST 14 L (15-37) U/L ALT 30 (16-63) U/L Alkaline Phosphatase 55 (46-116) U/L Total Protein 7.7 (6.4-8.2) g/dl Albumin 3.5 (3.4-5.0) g/dl Globulin 4.2 gm/dL Albumin/Globulin Ratio 0.8 L (1-2) Result Diagrams: 02/03/21 12:05 02/03/21 12:05 Sepsis Event Note - Evaluation Sepsis Screening Result: No Definite Risk - Focused Exam Vital Signs: Vital Signs Temp Pulse Resp BP Pulse Ox 02/04/21 07:34 98.4 F 79 19 116/81 93 L 02/04/21 07:00 17 02/04/21 06:00 18 02/04/21 04:42 98.8 F 78 16 114/70 93 L 02/04/21 02:00 23 H 02/04/21 01:00 20 02/04/21 00:00 20 02/03/21 23:18 98.8 F 85 16 111/63 93 L 02/03/21 23:00 19 02/03/21 22:12 22 H 02/03/21 20:28 98.8 F 100 16 114/69 90 L - Problem List Review Problem List Initiated/Reviewed/Updated: No - My Orders Last 24 Hours: My Active Orders 02/03/21 13:58 Patient Status [ADT] Routine Oxygen Therapy [RC] PRN Up ad Norma [RC] BID VTE/DVT Education [RC] PER UNIT ROUTINE Vital Signs [RC] Q4HR HYDROmorphone [Dilaudid] 0.5 mg IVPUSH Q2H PRN Ondansetron [Zofran ODT] 4 mg PO Q4H PRN oxyCODONE 5 mg PO Q4H PRN Resuscitation Status Routine 02/03/21 13:59 Intake and Output [RC] 04,16 02/03/21 14:00 Cardiac Monitoring [RC] CONTINUOUS Pulse Oximetry [RC] CONTINUOUS Sequential Compression Device [OM.PC] Per Unit Routine 02/03/21 14:01 Antiembolic Devices [RC] BID 02/03/21 14:07 Ondansetron [Zofran] 4 mg IV Q4H PRN 02/03/21 15:00 Acetaminophen [TylenoL] 650 mg PO Q6H 02/03/21 Dinner Regular Diet [DIET] 02/03/21 19:34 RT Incentive Spirometry [RC] BID 02/03/21 19:35 Communication Order [RC] BID RT Acapella [RESPCARE] Routine 02/03/21 21:00 Docusate Sodium [Colace] 100 mg PO BID 02/04/21 05:11 Chest 1V Frontal [CR] AM 02/04/21 09:00 Enoxaparin [Lovenox] 40 mg SUBCUT DAILY 02/05/21 05:11 Chest 1V Frontal [CR] AM 02/06/21 05:11 Chest 1V Frontal [CR] AM 02/07/21 05:11 Chest 1V Frontal [CR] AM 02/08/21 05:11 Chest 1V Frontal [CR] AM - Assessment Assessment:: HD1 with left spontaneous pneumothorax s/p chest tube - Plan Plan:: Plan - intensive pulm hygiene for this patient with IS and acapella. He will need pain medications for this - pain meds as needed for pain, especially for breathing exercises - wean oxygen as tolerated - Xray done this AM, once read is up and if no residual Ptx, we may place chest tube to waterseal - call with any questions
[2021-02-04] MEDS: Enoxaparin 40 MG/0.4 ML Syringe SUBCUT SCH (08:11)
[2021-02-04] MEDS: oxyCODONE 5 MG Tab PO PRN ×3 (08:12→19:20)
[2021-02-04] MEDS: Docusate Sodium 100 MG Cap PO SCH ×3 (08:13→20:39)
--- NOTE | 2021-02-04 09:43 | CR ---
Chest: Portable view of the chest was obtained. Comparison: Prior chest x-ray of 02/03/21. Left-sided chest tube is seen. Small amount of pneumothorax is noted within the left base which has continued to decrease in size from prior exam. Small cystic area is noted (measuring 2.5 cm) within the left upper lung which is possibly parenchymal in location. Right lung is clear. Heart size and mediastinum are normal. Bony structures show nothing acute. Impression: 1. Small left basilar pneumothorax which has decreased from prior exam. 2. Small cystic area within the left upper lung possibly within the lung parenchyma. 3. Left-sided chest tube. Diagnostic code #3
--- NOTE | 2021-02-04 18:07 | CR ---
Chest: Portable view of the chest was obtained. Comparison: Prior chest x-ray performed earlier on the same day (7:26 AM). Left-sided chest tube is seen. Small left basilar pneumothorax is noted. Slight atelectasis is seen within the left lung base. Minimal atelectasis within the right lung base. Slight soft tissue air is seen within the left lower chest wall. Impression: 1. Minimal pneumothorax within the left lung base which has improved from prior study. Left-sided chest tube remains. 2. Soft tissue air is noted within the left lower chest wall. 3. Mild left basilar atelectasis. Diagnostic code #3
--- NOTE | 2021-02-04 20:01 | PCM.SN.2 ---
- Free Text/Narrative Note: Chest Xray reviewed. Improving basilar Pneumothorax. We will keep chest tube to intermittent LWS overnight. Repeat Xray in the AM. Time Documentation
[2021-02-05] MEDS: oxyCODONE 5 MG Tab PO PRN ×4 (00:22→20:02)
[2021-02-05] MEDS: Acetaminophen 325 MG Tab PO SCH ×4 (04:49→20:02)
[2021-02-05] MEDS: Docusate Sodium 100 MG Cap PO SCH ×2 (08:50→20:02)
[2021-02-05] MEDS: Enoxaparin 40 MG/0.4 ML Syringe SUBCUT SCH (08:51)
--- NOTE | 2021-02-05 09:19 | CR ---
Chest: Portable view of the chest was obtained. Comparison: Prior chest x-ray of 02/04/21. Very minimal pleural air is seen within the left base. Findings continue to improve from prior exam. Left-sided chest tube is seen. Slight atelectasis is noted within the left lung base. Small cystic area is seen within the left upper lung which is stable. Heart size and mediastinum are normal. Bony structures show nothing acute. Impression: 1. Minimal pleural air within the left lung base which has decreased from prior exam. 2. Stable cyst within the left upper lung. 3. Stable left sided chest tube. 4. Continuing atelectasis within the left lung base. Diagnostic code #3
--- NOTE | 2021-02-05 11:26 | PCM.PN ---
- General Info Date of Service: 02/05/21 Admission Dx/Problem (Free Text): Admission Diagnosis/Problem Admission Diagnosis/Problem Pneumothorax on left Subjective Update: Patient is doing fine. On room air. has some left chest pain but manageable. Functional Status: Reports: Pain Controlled, Tolerating Diet, Ambulating, Urinating - Review of Systems General: Reports: No Symptoms HEENT: Reports: No Symptoms Pulmonary: Reports: Pleuritic Chest Pain Cardiovascular: Reports: No Symptoms Gastrointestinal: Reports: No Symptoms Genitourinary: Reports: No Symptoms Musculoskeletal: Reports: No Symptoms Skin: Reports: No Symptoms Neurological: Reports: No Symptoms - Patient Data Vitals - Most Recent: Last Vital Signs Temp 98.2 F 02/05/21 08:09 Pulse 83 02/05/21 08:09 Resp 16 02/05/21 08:09 BP 118/71 02/05/21 08:09 Pulse Ox 90 L 02/05/21 08:09 Weight - Most Recent: 89.857 kg I&O - Last 24 Hours: Intake & Output 02/04/21 02/05/21 02/05/21 22:59 06:59 14:59 Intake Total 2140 875 Output Total 1084 620 Balance 1056 255 Med Orders - Current: Current Medications Acetaminophen (Acetaminophen 325 Mg Tab) 650 mg PO Q6H [facility] Last Admin: 02/05/21 08:50 Dose: 650 mg Documented by: Docusate Sodium (Docusate Sodium 100 Mg Cap) 100 mg PO BID [facility] Last Admin: 02/05/21 08:50 Dose: 100 mg Documented by: Enoxaparin Sodium (Enoxaparin 40 Mg/0.4 Ml Syringe) 40 mg SUBCUT DAILY [facility] Last Admin: 02/05/21 08:51 Dose: 40 mg Documented by: Hydromorphone HCl (Hydromorphone 0.5 Mg/0.5 Ml Syringe) 0.5 mg IVPUSH Q2H PRN PRN Reason: Pain (severe 7-10) Last Admin: 02/05/21 08:01 Dose: 0.5 mg Documented by: Ondansetron HCl (Ondansetron 4 Mg Tab.Dis) 4 mg PO Q4H PRN PRN Reason: nausea, able to take PO Ondansetron HCl (Ondansetron 4 Mg/2 Ml Sdv) 4 mg IV Q4H PRN PRN Reason: Nausea/Vomiting Oxycodone HCl (Oxycodone 5 Mg Tab) 5 mg PO Q4H PRN PRN Reason: Pain (moderate 4-6) Last Admin: 02/05/21 04:50 Dose: 5 mg Documented by: Sodium Chloride (Sodium Chloride 0.9% 10 Ml Syringe) 10 ml FLUSH ASDIRECTED PRN PRN Reason: Keep Vein Open Last Admin: 02/03/21 12:08 Dose: 10 ml Documented by: Discontinued Medications Fentanyl (Fentanyl 100 Mcg/2 Ml Sdv) 50 mcg IVPUSH ONETIME ONE Stop: 02/03/21 12:59 Last Admin: 02/03/21 13:10 Dose: 50 mcg Documented by: Sodium Chloride (Normal Saline) 1,000 mls @ 125 mls/hr IV ASDIRECTED [facility] Last Admin: 02/04/21 15:30 Dose: 125 mls/hr Documented by: Lidocaine/Epinephrine (Lidocaine 1% With Epinephrine 1:100,000 10 Ml Mdv) Confirm Administered Dose 10 ml .ROUTE .STK-MED ONE Stop: 02/03/21 13:02 Last Admin: 02/03/21 13:27 Dose: Not Given Documented by: Lidocaine/Epinephrine (Lidocaine 1% With Epinephrine 1:100,000 10 Ml Mdv) Confirm Administered Dose 10 ml .ROUTE .STK-MED ONE Stop: 02/03/21 13:02 Last Admin: 02/03/21 13:27 Dose: Not Given Documented by: Lidocaine/Epinephrine (Lidocaine 1% With Epinephrine 1:100,000 10 Ml Mdv) Confirm Administered Dose 10 ml .ROUTE .STK-MED ONE Stop: 02/03/21 13:12 Last Admin: 02/03/21 13:28 Dose: Not Given Documented by: Lidocaine/Epinephrine (Lidocaine 1% With Epinephrine 1:100,000 20 Ml Mdv) 20 ml INJECT ONETIME ONE Stop: 02/03/21 13:28 Last Admin: 02/03/21 13:20 Dose: 20 ml Documented by: Propofol (Propofol 200 Mg/20 Ml Sdv) 200 mg IVPUSH ONETIME ONE Stop: 02/03/21 12:59 Last Admin: 02/03/21 13:10 Dose: 200 mg Documented by: Propofol (Propofol 200 Mg/20 Ml Sdv) Confirm Administered Dose 200 mg .ROUTE .STK-MED ONE Stop: 02/03/21 13:24 Last Admin: 02/03/21 13:28 Dose: Not Given Documented by: - Exam General: Alert, Oriented, Cooperative Lungs: Normal Respiratory Effort Cardiovascular: Regular Rate, Regular Rhythm - Patient Data Result Diagrams: 02/03/21 12:05 02/03/21 12:05 Sepsis Event Note - Evaluation Sepsis Screening Result: No Definite Risk - Focused Exam Vital Signs: Vital Signs Temp Pulse Resp BP Pulse Ox 02/05/21 08:09 98.2 F 83 16 118/71 90 L 02/05/21 04:49 98.6 F 87 18 113/73 88 L 02/05/21 00:26 98.8 F 93 18 120/70 87 L - Problem List Review Problem List Initiated/Reviewed/Updated: No - My Orders Last 24 Hours: My Active Orders 02/05/21 09:40 Communication Order [RC] BID 02/05/21 13:00 Chest 1V Frontal [CR] Timed 02/06/21 05:11 Chest 1V Frontal [CR] AM 02/07/21 05:11 Chest 1V Frontal [CR] AM 02/08/21 05:11 Chest 1V Frontal [CR] AM - Assessment Assessment:: HD3 with left spontaneous pneumothorax s/p chest tube - Plan Plan:: Plan - intensive pulm hygiene for this patient with IS and acapella. Continue current pain regimen - small basilar pneumo remains, stable. Chest 6ube placed to waterseal this AM. Repeat chest xray at 1300, if stable, will remove the chest tube - wean oxygen as tolerated - Dispo: possible today if left lung pneumo does not change significantly.
--- NOTE | 2021-02-05 13:27 | CR ---
Chest: Portable view of the chest was obtained. Comparison: Prior chest x-ray performed earlier on the same date (8:27 AM). Small pneumothorax is seen within the left base. This is stable from prior exam. Small amount of subcutaneous air is seen within the left chest wall. Mild pneumothorax is noted along the left lateral chest which is an interval change from prior exam. Left chest tube is present. Small air cavity is seen within the left upper lung. Increasing atelectasis is seen within the left lung base. Heart size and mediastinum are stable. Impression: 1. Slight increasing pneumothorax along the left lateral chest. 2. Increasing atelectasis within the left lung base. 3. Chest tube and other stable findings as noted above. Diagnostic code #3
--- NOTE | 2021-02-05 14:38 | PCM.SN.2 ---
- Free Text/Narrative Note: Pneumothorax increased on waterseal. Patient remained asymptomatic. chest tube connections re-examined, no broken connections noted. Dressing redone. We will leave chest tube to continuous suction overnight and repeat chest Xray in the AM. Time Documentation
[2021-02-06] MEDS: Acetaminophen 325 MG Tab PO SCH ×3 (02:40→15:10)
[2021-02-06] MEDS: oxyCODONE 5 MG Tab PO PRN ×2 (02:41→11:43)
[2021-02-06] MEDS: Docusate Sodium 100 MG Cap PO SCH (09:05)
[2021-02-06] MEDS: Enoxaparin 40 MG/0.4 ML Syringe SUBCUT SCH (09:05)
--- NOTE | 2021-02-06 10:53 | PCM.PN ---
- General Info Date of Service: 02/06/21 Admission Dx/Problem (Free Text): Admission Diagnosis/Problem Admission Diagnosis/Problem Pneumothorax on left Subjective Update: Patient is stable and on room air. Has some pain at the chest tube site but it is tolerable. Functional Status: Reports: Pain Controlled, Tolerating Diet, Ambulating, Urin ating - Review of Systems General: Reports: No Symptoms HEENT: Reports: No Symptoms Pulmonary: Reports: No Symptoms Cardiovascular: Reports: No Symptoms Gastrointestinal: Reports: No Symptoms Genitourinary: Reports: No Symptoms Musculoskeletal: Reports: No Symptoms - Patient Data Vitals - Most Recent: Last Vital Signs Temp 98.2 F 02/06/21 08:54 Pulse 96 02/06/21 08:54 Resp 20 02/06/21 08:54 BP 115/83 02/06/21 08:54 Pulse Ox 93 L 02/06/21 08:54 Weight - Most Recent: 91.49 kg I&O - Last 24 Hours: Intake & Output 02/05/21 02/06/21 02/06/21 22:59 06:59 14:59 Intake Total 1200 800 200 Output Total 2000 1880 Balance -800 -1080 200 Med Orders - Current: Current Medications Acetaminophen (Acetaminophen 325 Mg Tab) 650 mg PO Q6H [facility] Last Admin: 02/06/21 09:03 Dose: 650 mg Documented by: Docusate Sodium (Docusate Sodium 100 Mg Cap) 100 mg PO BID [facility] Last Admin: 02/06/21 09:05 Dose: 100 mg Documented by: Enoxaparin Sodium (Enoxaparin 40 Mg/0.4 Ml Syringe) 40 mg SUBCUT DAILY [facility] Last Admin: 02/06/21 09:05 Dose: 40 mg Documented by: Hydromorphone HCl (Hydromorphone 0.5 Mg/0.5 Ml Syringe) 0.5 mg IVPUSH Q2H PRN PRN Reason: Pain (severe 7-10) Last Admin: 02/05/21 08:01 Dose: 0.5 mg Documented by: Ondansetron HCl (Ondansetron 4 Mg Tab.Dis) 4 mg PO Q4H PRN PRN Reason: nausea, able to take PO Ondansetron HCl (Ondansetron 4 Mg/2 Ml Sdv) 4 mg IV Q4H PRN PRN Reason: Nausea/Vomiting Oxycodone HCl (Oxycodone 5 Mg Tab) 5 mg PO Q4H PRN PRN Reason: Pain (moderate 4-6) Last Admin: 02/06/21 02:41 Dose: 5 mg Documented by: Sodium Chloride (Sodium Chloride 0.9% 10 Ml Syringe) 10 ml FLUSH ASDIRECTED PRN PRN Reason: Keep Vein Open Last Admin: 02/03/21 12:08 Dose: 10 ml Documented by: Discontinued Medications Fentanyl (Fentanyl 100 Mcg/2 Ml Sdv) 50 mcg IVPUSH ONETIME ONE Stop: 02/03/21 12:59 Last Admin: 02/03/21 13:10 Dose: 50 mcg Documented by: Sodium Chloride (Normal Saline) 1,000 mls @ 125 mls/hr IV ASDIRECTED [facility] Last Admin: 02/04/21 15:30 Dose: 125 mls/hr Documented by: Lidocaine/Epinephrine (Lidocaine 1% With Epinephrine 1:100,000 10 Ml Mdv) Confirm Administered Dose 10 ml .ROUTE .STK-MED ONE Stop: 02/03/21 13:02 Last Admin: 02/03/21 13:27 Dose: Not Given Documented by: Lidocaine/Epinephrine (Lidocaine 1% With Epinephrine 1:100,000 10 Ml Mdv) Confirm Administered Dose 10 ml .ROUTE .STK-MED ONE Stop: 02/03/21 13:02 Last Admin: 02/03/21 13:27 Dose: Not Given Documented by: Lidocaine/Epinephrine (Lidocaine 1% With Epinephrine 1:100,000 10 Ml Mdv) Confirm Administered Dose 10 ml .ROUTE .STK-MED ONE Stop: 02/03/21 13:12 Last Admin: 02/03/21 13:28 Dose: Not Given Documented by: Lidocaine/Epinephrine (Lidocaine 1% With Epinephrine 1:100,000 20 Ml Mdv) 20 ml INJECT ONETIME ONE Stop: 02/03/21 13:28 Last Admin: 02/03/21 13:20 Dose: 20 ml Documented by: Propofol (Propofol 200 Mg/20 Ml Sdv) 200 mg IVPUSH ONETIME ONE Stop: 02/03/21 12:59 Last Admin: 02/03/21 13:10 Dose: 200 mg Documented by: Propofol (Propofol 200 Mg/20 Ml Sdv) Confirm Administered Dose 200 mg .ROUTE .STK-MED ONE Stop: 02/03/21 13:24 Last Admin: 02/03/21 13:28 Dose: Not Given Documented by: - Exam General: Alert, Oriented, Cooperative Lungs: Normal Respiratory Effort Cardiovascular: Regular Rate, Regular Rhythm - Patient Data Result Diagrams: 02/03/21 12:05 02/03/21 12:05 Sepsis Event Note - Evaluation Sepsis Screening Result: No Definite Risk - Focused Exam Vital Signs: Vital Signs Temp Pulse Resp BP Pulse Ox 02/06/21 08:54 98.2 F 96 20 115/83 93 L 02/06/21 02:45 98.2 F 91 18 129/78 95 02/05/21 23:25 98.4 F 79 16 120/73 - Problem List Review Problem List Initiated/Reviewed/Updated: No - My Orders Last 24 Hours: My Active Orders 02/06/21 05:11 Chest 1V Frontal [CR] AM 02/06/21 09:32 Communication Order [RC] BID 02/06/21 12:00 Chest 1V Frontal [CR] Timed 02/07/21 05:11 Chest 1V Frontal [CR] AM 02/08/21 05:11 Chest 1V Frontal [CR] AM - Assessment Assessment:: HD4 with left spontaneous pneumothorax s/p chest tube - Plan Plan:: Plan - intensive pulm hygiene for this patient with IS and acapella. Continue current pain regimen - small basilar pneumo remains, stable. Chest tube placed to waterseal this AM. Repeat chest xray at 1200, if stable, will remove the chest tube - patient is on room air - Dispo: possible today if left lung pneumo does not change significantly.
--- NOTE | 2021-02-06 13:29 | CR ---
Chest: Expiration and inspiration views of the chest were obtained. Comparison: Prior chest x-ray of 02/06/21 (7:16 AM) Minimal cystic change is seen within the left upper chest which is stable. I do not see a definite pneumothorax on this study. Slight atelectasis remains within the left lung base. Right lung is clear. Heart size and mediastinum are within normal limits. Stable position of left-sided chest tube. Impression: 1. No definite findings of pneumothorax. 2. Left-sided chest tube. 3. Mild left basilar atelectasis. Diagnostic code #2
--- NOTE | 2021-02-06 13:50 | PCM.SN.2 ---
- Free Text/Narrative Note: No pneumothorax today. Chest tube removed without any immediate issues. We will repeat Chest Xray at 5PM if stable. Then pt can be discharged to home. Time Documentation
--- NOTE | 2021-02-06 16:17 | CR ---
Chest: Inspiratory and expiratory views of the chest were obtained. Comparison: Prior chest x-ray 02/05/21. Left-sided chest tube is seen. No definite pneumothorax is seen on this study. There is increased density within the left lung base most likely representing atelectasis. Cystic area is seen within the left upper chest which is stable. Right lung is clear. Heart size and mediastinum are within normal limits. Impression: 1. No definite findings of pneumothorax. 2. Left chest tube is present. 3. Other stable findings as noted above. Diagnostic code #2 I minimally disagree with preliminary report from [facility], finalized on 02/06/21, 9:04 AM CDT, code 2
--- NOTE | 2021-02-06 16:27 | CR ---
Chest: Portable view of the chest was obtained. Comparison: Prior chest x-ray performed earlier on the same day (12:11 PM). Lucency is seen within the left lung base. This most likely represents a small loculated pneumothorax which has developed. No other findings of pneumothorax are seen. Cystic area is seen within the left upper lung which is stable. Slight atelectasis is noted within the left base. Right lung is clear. Left chest tube has been removed. Small amount of air is seen within the left chest wall. Impression: 1. Lucency within the left lung base. Findings most likely represents a small loculated pneumothorax. No other findings of pneumothorax are seen. 2. Left chest tube has been removed. 3. Small amount of air within the left chest wall. 4. Mild left basilar atelectasis is noted. Diagnostic code #3
--- NOTE | 2021-02-06 16:46 | PCM.SN.2 ---
- Free Text/Narrative Note: Post pull Chest Xray done. There is a small lucency at the left base likely due to a small pneumothorax. Will repeat chest Xray at 7pm (3hrs post pull) to assess stability. If stable, then patient can likely be discharged. Time Documentation
--- NOTE | 2021-02-06 19:28 | CR ---
Chest: Portable view of the chest was obtained. Comparison: Prior chest x-ray performed earlier on the same day (4:12 PM) Findings: Air lucency is seen within the left lung base. This appears slightly smaller than on prior exam presumably due to decreasing size of loculated pneumothorax. Minimal air cavity within the left upper chest remains. Patchy areas of increased density presumably due to atelectasis are noted within the left lung base. Right lung shows no acute parenchymal change. Heart size and mediastinum are stable. Small amount of subcutaneous air is seen within the lateral left chest wall which has also slightly decreased in amount. Impression: 1. Mild decreasing air lucency within the left lung base presumably due to slightly smaller loculated pneumothorax when compared to prior exam. Slight decrease of air within the lateral left chest wall is also noted. 2. Atelectasis remains within the left lung base. Stable small air cavity within the left upper chest. 3. Nothing acute is otherwise identified. Diagnostic code #3
--- NOTE | 2021-02-06 20:00 | PCM.DCSUM1 ---
Discharge Summary - Hospital Course Free Text/Narrative:: Patient developed a spontaneous pneumothorax in the context of covid-19 recovery. He had a chest tube placed progressed slowly but eventually he had a full re-expansion of the lungs. The chest tube was removed. Post removal Xray showed a small basilar pneumothorax that decreased on a follow up Xray 3 hrs later without any intervention. patient remained stable throughout. He will be discharged to home and he will follow up with PCP for re-evaluation. Diagnosis: Stroke: No - Discharge Data Discharge Date: 02/06/21 Discharge Disposition: Home, Self-Care 01 Condition: Good - Referral to Home Health Primary Care Physician: Rodriguez Roque MD - Patient Instructions Diet: Heart Healthy Diet Activity: As Tolerated Driving: May Drive Today Showering/Bathing: May Shower Wound/Incision Care: Keep Operative Site/Wound Site Clean and Dry Notify Provider of: Fever, Increased Pain, Swelling and Redness Other/Special Instructions: - Take off the left chest bandage after [address] another bandage as needed. - Please follow up with PCP in 3-5 days to make sure he is doing well. - Watch for recurrent chest pain or difficulty breathing. If any of these happen, seek immediate care either at the walk-in clinic or emergency room. - Use Tylenol or Ibuprofen for pain. - Call Dr. Dumont's office with any questions - Discharge Plan *PRESCRIPTION DRUG MONITORING PROGRAM REVIEWED*: Not Applicable *COPY OF PRESCRIPTION DRUG MONITORING REPORT IN PATIENT MIRIAM: Not Applicable Home Medications: Home Meds . [No Known Home Meds] 02/03/21 [History] Oxygen Therapy Mode: Room Air Referrals: Rodriguez Roque MD [Primary Care Provider] - (In 3-[address] Dumont's office with any concerns or questions) - Discharge Summary/Plan Comment DC Time >30 min.: Yes Total # of Minutes for Discharge Time: 40 - General Info Date of Service: 02/06/21 Admission Dx/Problem (Free Text: Admission Diagnosis/Problem Admission Diagnosis/Problem Pneumothorax on left Subjective Update: Patient is stable and on room air. Has some pain at the chest tube site but it is tolerable. Functional Status: Reports: Pain Controlled, Tolerating Diet, Ambulating, Urinating - Review of Systems General: Reports: No Symptoms HEENT: Reports: No Symptoms Pulmonary: Reports: No Symptoms Cardiovascular: Reports: No Symptoms Gastrointestinal: Reports: No Symptoms Genitourinary: Reports: No Symptoms Musculoskeletal: Reports: No Symptoms Skin: Reports: No Symptoms - Patient Data Vitals - Most Recent: Last Vital Signs Temp 98.1 F 02/06/21 15:02 Pulse 95 02/06/21 15:02 Resp 20 02/06/21 15:02 BP 119/76 02/06/21 15:02 Pulse Ox 93 L 02/06/21 15:02 Weight - Most Recent: 91.49 kg I&O - Last 24 hours: Intake & Output 02/06/21 02/06/21 02/06/21 06:59 14:59 22:59 Intake Total 800 200 800 Output Total 1880 1690 Balance -1080 200 -890 Med Orders - Current: Current Medications Acetaminophen (Acetaminophen 325 Mg Tab) 650 mg PO Q6H [facility] Last Admin: 02/06/21 15:10 Dose: 650 mg Documented by: Docusate Sodium (Docusate Sodium 100 Mg Cap) 100 mg PO BID [facility] Last Admin: 02/06/21 09:05 Dose: 100 mg Documented by: Enoxaparin Sodium (Enoxaparin 40 Mg/0.4 Ml Syringe) 40 mg SUBCUT DAILY [facility] Last Admin: 02/06/21 09:05 Dose: 40 mg Documented by: Hydromorphone HCl (Hydromorphone 0.5 Mg/0.5 Ml Syringe) 0.5 mg IVPUSH Q2H PRN PRN Reason: Pain (severe 7-10) Last Admin: 02/05/21 08:01 Dose: 0.5 mg Documented by: Ondansetron HCl (Ondansetron 4 Mg Tab.Dis) 4 mg PO Q4H PRN PRN Reason: nausea, able to take PO Ondansetron HCl (Ondansetron 4 Mg/2 Ml Sdv) 4 mg IV Q4H PRN PRN Reason: Nausea/Vomiting Oxycodone HCl (Oxycodone 5 Mg Tab) 5 mg PO Q4H PRN PRN Reason: Pain (moderate 4-6) Last Admin: 02/06/21 11:43 Dose: 5 mg Documented by: Sodium Chloride (Sodium Chloride 0.9% 10 Ml Syringe) 10 ml FLUSH ASDIRECTED PRN PRN Reason: Keep Vein Open Last Admin: 02/03/21 12:08 Dose: 10 ml Documented by: Discontinued Medications Fentanyl (Fentanyl 100 Mcg/2 Ml Sdv) 50 mcg IVPUSH ONETIME ONE Stop: 02/03/21 12:59 Last Admin: 02/03/21 13:10 Dose: 50 mcg Documented by: Sodium Chloride (Normal Saline) 1,000 mls @ 125 mls/hr IV ASDIRECTED PHONG Last Admin: 02/04/21 15:30 Dose: 125 mls/hr Documented by: Lidocaine/Epinephrine (Lidocaine 1% With Epinephrine 1:100,000 10 Ml Mdv) Confirm Administered Dose 10 ml .ROUTE .STK-MED ONE Stop: 02/03/21 13:02 Last Admin: 02/03/21 13:27 Dose: Not Given Documented by: Lidocaine/Epinephrine (Lidocaine 1% With Epinephrine 1:100,000 10 Ml Mdv) Confirm Administered Dose 10 ml .ROUTE .STK-MED ONE Stop: 02/03/21 13:02 Last Admin: 02/03/21 13:27 Dose: Not Given Documented by: Lidocaine/Epinephrine (Lidocaine 1% With Epinephrine 1:100,000 10 Ml Mdv) Confirm Administered Dose 10 ml .ROUTE .STK-MED ONE Stop: 02/03/21 13:12 Last Admin: 02/03/21 13:28 Dose: Not Given Documented by: Lidocaine/Epinephrine (Lidocaine 1% With Epinephrine 1:100,000 20 Ml Mdv) 20 ml INJECT ONETIME ONE Stop: 02/03/21 13:28 Last Admin: 02/03/21 13:20 Dose: 20 ml Documented by: Propofol (Propofol 200 Mg/20 Ml Sdv) 200 mg IVPUSH ONETIME ONE Stop: 02/03/21 12:59 Last Admin: 02/03/21 13:10 Dose: 200 mg Documented by: Propofol (Propofol 200 Mg/20 Ml Sdv) Confirm Administered Dose 200 mg .ROUTE .STK-MED ONE Stop: 02/03/21 13:24 Last Admin: 02/03/21 13:28 Dose: Not Given Documented by: - Exam General: Reports: Alert, Oriented, Cooperative Lungs: Reports: Normal Respiratory Effort Cardiovascular: Reports: Regular Rate, Regular Rhythm
== END 2021-02-06 20:08 | disposition home or self-care (01) | DRG 143 ==
LOC: JD.ED 11:42 → JD.MS 13:58
PROVIDERS: ADMIT Surgery; ATTEND Surgery
PROC: 0W9B30Z Drainage of Left Pleural Cavity with Drainage Device, Percutaneous Approach (ICD-10-PCS; principal; 2021-02-03)
DX: J93.83 Other pneumothorax (principal); Z86.16 Personal history of COVID-19; Z87.442 Personal history of urinary calculi; Z89.9 Acquired absence of limb, unspecified
CPT/HCPCS: 32557; 36415; 36556; 71045; 71045-26; 71046; 71046-26; 80053; 85025; 94667; 94762; 96374; 99285; 99285-25; A9270-GY; J1170; J1650; J2704; J3010; J7030